=== PATIENT | male | born 1980 | race Caucasian/White ===

== ENCOUNTER 2024-10-09 14:08 | Inpatient (IN) | payer OTHER ==
[2024-10-09] MEDS ORDERED: IBUPROFEN 600 MG TABLET (FP) PO PRN (16:15)
[2024-10-09] MEDS ORDERED: POLYETHYLENE GLYCOL (HEALTHYLAX) 3350 17 GM PACKET PO PRN (16:15)
[2024-10-09] MEDS ORDERED: ACETAMINOPHEN 325 MG TABLET (FP) PO PRN (16:15)
[2024-10-09] MEDS ORDERED: MAGNESIUM HYDROX 2400MG/30ML ORAL SUSPENSION 30 ML CUP PO PRN (16:15)
[2024-10-09] MEDS ORDERED: IBUPROFEN 400 MG TABLET (FP) PO PRN (16:15)
[2024-10-09] MEDS ORDERED: BISMUTH SUBSALICYLATE 524 MG/30 ML PO PRN (16:15)
[2024-10-09] MEDS ORDERED: guaiFENesin 600 MG TABLET.ER (FP) PO PRN (16:15)
[2024-10-09] MEDS ORDERED: BENZOCAINE/MENTHOL (CHLORASEPTIC ) LOZENGE MM PRN (16:15)
[2024-10-09] MEDS ORDERED: ONDANSETRON *ODT* 4 MG TABLET SL PRN (16:15)
[2024-10-09] MEDS ORDERED: DICYCLOMINE HCL 10 MG CAPSULE PO PRN (16:15)
[2024-10-09] MEDS ORDERED: BENZONATATE 200 MG CAPSULE PO PRN (16:15)
[2024-10-09] MEDS ORDERED: NALOXONE (NARCAN) HCL 4 MG/0.1 ML SPRAY NS PRN (16:15)
[2024-10-09] MEDS ORDERED: LOPERAMIDE HCL 2 MG CAPSULE PO PRN (16:15)
[2024-10-09] MEDS ORDERED: MAG HYDROX/AL HYDROX/SIMETH 30 ML UNIT-DOSE CUP PO PRN (16:15)
[2024-10-09 16:33] VITALS: BMI 29.2
[2024-10-09] MEDS: hydrOXYzine PAMOATE 25 MG CAPSULE (FP) PO PRN (20:09)
[2024-10-09] MEDS: METHOCARBAMOL 500 MG TABLET PO PRN (20:09)
[2024-10-09] MEDS: levETIRAcetam 500 MG TABLET (FP) PO SCH (21:16)
[2024-10-09] MEDS: MELATONIN 5 MG TABLETS PO SCH (22:01)
[2024-10-09] MEDS: THIAMINE 100 MG TABLET PO SCH (22:01)
[2024-10-10] MEDS: PRENATAL VITAMINS W/ FOLIC ACID TABLET (FP) PO SCH (09:06)
[2024-10-10 11:16] LABS: MCHC 30.8 g/dl (32.3-36.5); MEAN CELL VOLUME 90.9 fl (79.0-92.2); MEAN PLT VOLUME 11.3 fl (9.4-12.4); RDW 13.7 % (12.1-15.9)
[2024-10-10 11:55] LABS: ALK PHOS 61 U/L (45-117)
[2024-10-10 11:56] LABS: CREATININE 1.2 mg/dL (0.55-1.3)
[2024-10-10 11:57] LABS: CO2 27 mmol/L (21-32); GLUCOSE,RANDOM 99 mg/dL (74-106); SGPT/ALT 55 U/L (13-61); TOT PROT 6.0 g/dl (6.4-8.2)
[2024-10-10 12:01] LABS: SGOT/AST 44 U/L (15-37)
[2024-10-10] MEDS: SUVOREXANT 10 MG TABLET PO PRN (22:04)
[2024-10-14] MEDS: MELATONIN 5 MG TABLETS PO ONE (21:39)
[2024-10-15 13:17] VITALS: BP 110/65; PULSE 70; RESP 16; TEMP 97.2
== END 2024-10-15 14:48 | disposition other institution (70) | DRG 773 ==
LOC: YASAS 14:08 → Y3N 18:43
PROVIDERS: ADMIT Neuromusculoskeletal Medicine & OMM; ATTEND Family Medicine Addiction Medicine
PROC: HZ2ZZZZ Detoxification Services for Substance Abuse Treatment (ICD-10-PCS; principal; 2024-10-09)
DX: F11.23 Opioid dependence with withdrawal (principal); F13.90 Sedative, hypnotic, or anxiolytic use, unspecified, uncomplicated; F41.9 Anxiety disorder, unspecified
CPT/HCPCS: 36415; 80053; 80305; 80307; 85027; 86780; 93005; 93010